=== PATIENT | male | born 1985 | race African-American/Black ===

== ENCOUNTER 2017-02-16 07:31 | Emergency (ER) | payer MEDICAID ==
[~2017-02-16] VITALS: Ht 175.3 cm; Wt 70.3 kg
[2017-02-16] MEDS ORDERED: KETOROLAC TROMETH 60MG/2ML VIAL IM ONE (09:45)
[2017-02-16 10:10] VITALS: BP 139/79
== END 2017-02-16 10:58 | disposition home or self-care (01) ==
LOC: ER 07:31
DX: L02.01 Cutaneous abscess of face (principal)
CPT/HCPCS: 70486; 96372; 99284; J1885